=== PATIENT | male | born 1990 | race Caucasian/White ===

== ENCOUNTER 2017-02-27 14:19 | Emergency (ER) | payer SELFPAY ==
[2017-02-27] MEDS ORDERED: methylPREDNISolone SODIUM SUC 125 MG/2 ML VIAL IM ONE (14:34)
[2017-02-27] MEDS ORDERED: LIDOCAINE VISCOUS 2% 15 ML, diphenhydrAMINE HCL 37.5 MG, NYSTATIN SUSPENSION 15 ML, ALU... PO PRN ×4 (14:34)
[2017-02-27 14:37] VITALS: TEMP 97.2
--- NOTE | 2017-02-27 14:37 | ED.PDOC ---
History of Present Illness - General Chief Complaint: Dental/Mouth Stated Complaint: oral ulcerations Time Seen by Provider: 02/27/17 14:28 Source: patient, RN notes reviewed, Vital Signs reviewed Exam Limitations: no limitations - History of Present Illness Initial Comments: Patient comes in with c/o mouth sores that started 3 days ago and are worsening. He was seen at another ER and diagnosed with Hand, Foot & Mouth disease but has no lesions on his palms or feet. He was put on Amoxicillin but is not helping. Timing/Duration: getting worse Severity: severe Improving Factors: nothing Worsening Factors: eating Associated Symptoms: denies symptoms Home Medications: Ambulatory Orders Lidocaine HCl (Mouth-Throat) [Lidocaine HCl] 5 ml MT Q4HR PRN #120 ml 02/27/17 Nystatin (Mouth-Throat) [Nystatin] 5 ml MT TID #120 ml 02/27/17 Prednisone [Deltasone] 20 mg PO DAILY #5 tab 02/27/17 Valacyclovir HCl [Valtrex] 1 gm PO TID #21 tab 02/27/17 Review of Systems - Review of Systems Constitutional: States: no symptoms reported EENTM: States: see HPI, mouth swelling - and ulcers Respiratory: States: no symptoms reported Cardiology: States: no symptoms reported Gastrointestinal/Abdominal: States: no symptoms reported Musculoskeletal: States: no symptoms reported Skin: States: see HPI Neurological: States: no symptoms reported All other Systems: No Change from Baseline Physical Exam - Physical Exam General Appearance: Alert, No apparent distress, Well Developed, Well Groomed, Well Hydrated, Well Nourished, Other - Uncomfortable Ears, Nose, Throat: other - Numerous ulcers on buccal membranes and @ corners of mouth with white plaque on tongue Neck: lymphadenopathy (R), lymphadenopathy (L) Respiratory: no respiratory distress Extremity: normal inspection Neurologic: alert, normal mood/affect, oriented x 3 Skin Exam: normal color, warm/dry, other - No lesions on palms of hands Lymphatic: no adenopathy Progress - Progress Progress: 02/27/17 14:38 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 Discussed getting HIV testing to be cautious. Departure - Departure Clinical Impression: Stomatitis herpetiformis, Thrush, oral Time of Disposition: 14:55 Disposition: Discharge to Home or Self Care Condition: Good Departure Forms: ED Discharge - Pt. Copy, Patient Portal Self Enrollment Instructions: DI for Cold Sores, DI for Thrush Diet: resume usual diet Activity: increase activity as tolerated Prescriptions: Lidocaine HCl (Mouth-Throat) [Lidocaine HCl] 5 ml MT Q4HR PRN #120 ml PRN Reason: Pain -- Moderate To Severe Nystatin (Mouth-Throat) [Nystatin] 5 ml MT TID #120 ml Prednisone [Deltasone] 20 mg PO DAILY #5 tab Valacyclovir HCl [Valtrex] 1 gm PO TID #21 tab Home Medications: Ambulatory Orders Lidocaine HCl (Mouth-Throat) [Lidocaine HCl] 5 ml MT Q4HR PRN #120 ml 02/27/17 Nystatin (Mouth-Throat) [Nystatin] 5 ml MT TID #120 ml 02/27/17 Prednisone [Deltasone] 20 mg PO DAILY #5 tab 02/27/17 Valacyclovir HCl [Valtrex] 1 gm PO TID #21 tab 02/27/17
[2017-02-27] MEDS ORDERED: ALUMINUM & MAGNESIUM HYDROXIDE 30 ML UD ONE (14:39)
[2017-02-27] MEDS ORDERED: LIDOCAINE HCL 2% (MOUTH-THROAT) 15 ML UD ONE (14:39)
[2017-02-27] MEDS ORDERED: diphenhydrAMINE HCL 12.5 MG/5 ML UD ONE (14:39)
[2017-02-27] MEDS ORDERED: NYSTATIN SUSPENSION 5 ML UD ONE (14:40)
[2017-02-27 15:05] VITALS: BP 115/76; O2SAT 99
== END 2017-02-27 15:05 | disposition home or self-care (01) ==
LOC: ER 14:19
DX: B37.0 Candidal stomatitis (principal); K12.0 Recurrent oral aphthae
CPT/HCPCS: J2930; Q0163